=== PATIENT | male | born 1950 | race Caucasian/White ===

== ENCOUNTER 2017-01-04 10:47 | Emergency (ER) | payer MEDICARE ==
--- NOTE | 2017-01-04 11:54 | ER Document Report ---
ED Medical Screen (RME) - General Chief Complaint: Shortness Of Breath Stated Complaint: MEDICATION REFILL Time Seen by Provider: 01/04/17 11:46 Notes: Patient is a 66 year old male presenting to the emergency department for green phylem, cough and difficulty breathing. Patient has had recurrent lung infections including pneumonia and sepsis. Patient had a sputum culture which then cased him to be prescribed Tobramycin. Patient has been off antibiotics for 20 days and has persistent a cough. Patient had just gotten off antibiotics 20 days ago. Patient continued to have coughing and persistent Patient has had repeatitive lung infections. Patient was prescribed topramycin by Dr. Henriquez. Patient was told to go into the ED to get the topramycin. home o2 0x4; Habilitation Specialist Dr. Henriquez EXAM: on o2 patients spouse states patient was prescribed tobramycin and was unable to have filled until saturday. states was told to ocme to the ER for IV antibiotics r/t "infection in lungs". even rise and fall of chest. patient noted to have been assisted to bathroom prior to assessment and noted to have had an assisted fall. states he falls often and "the walk was to long". denies injury. [ End ] change to levaquin 750 mg x10 days TRAVEL OUTSIDE OF THE [place] IN LAST 30 DAYS: No - Related Data Allergies/Adverse Reactions: tape Allergy (Uncoded 01/04/17 11:02) Past Medical History - Social History Chew tobacco use (# tins/day): No Frequency of alcohol use: None Drug Abuse: None - Past Medical History Cardiac Medical History: Reports: Hx Hypercholesterolemia Pulmonary Medical History: Reports: Hx COPD Endocrine Medical History: Reports: Hx Diabetes Mellitus Type 2 Renal/ Medical History: Denies: Hx Peritoneal Dialysis Physical Exam - Vital signs Vitals: Temp Pulse Resp BP Pulse Ox 98.0 F 110 H 22 H 114/75 97 01/04/17 11:01 01/04/17 11:01 01/04/17 11:01 01/04/17 11:01 01/04/17 11:01 Course - Vital Signs Vital signs: Temp Pulse Resp BP Pulse Ox 98.0 F 110 H 22 H 114/75 97 01/04/17 11:01 01/04/17 11:01 01/04/17 11:01 01/04/17 11:01 01/04/17 11:01
[2017-01-04] MEDS ORDERED: LEVOFLOXACIN 750 MG TABLET PO ONE (11:57)
--- NOTE | 2017-01-04 11:57 | ER Document Report ---
ED Respiratory Problem - General Mode of Arrival: Wheelchair Information source: Patient, Relative - spouse TRAVEL OUTSIDE OF THE [place] IN LAST 30 DAYS: No - HPI Patient complains to provider of: Cough Onset: Other - Refer to HPI Notes - General Chief Complaint: Shortness Of Breath Stated Complaint: MEDICATION REFILL Time Seen by Provider: 01/04/17 11:46 Notes: Patient is a 66 year old male presenting to the emergency department for persistent green phlegm and cough. Patient has had recurrent lung infections including pneumonia and sepsis. Patient has been admitted and seen several times at [facility]. Patient is being followed by Dr. Henriquez, pulmonology. Patient had a sputum culture and was prescribed Tobramycin; patient is having difficulty getting this medication due to insurance purposes. Patient has been off antibiotics for about 20 days. Patient was assisted to the bathroom out front and was noted to have an assisted fall in the bathroom. Patient denies any injuries relating to this. Patient states he falls often and the walk to the bathroom was too long. Patient is on 4 liters of home oxygen. Patient called Dr. Henriquez and was told to come to the emergency department to get the right medication or treatment. (NETTE CONDE) - Related Data Allergies/Adverse Reactions: tape Allergy (Uncoded 01/04/17 11:02) Past Medical History - General Information source: Patient - Social History Smoking Status: Former Smoker Cigarette use (# per day): No Chew tobacco use (# tins/day): No Frequency of alcohol use: None Drug Abuse: None Family History: None Patient has suicidal ideation: No Patient has homicidal ideation: No - Past Medical History Cardiac Medical History: Reports: Hx Hypercholesterolemia Pulmonary Medical History: Reports: Hx COPD Endocrine Medical History: Reports: Hx Diabetes Mellitus Type 2 Surgical Hx: Negative Review of Systems - Review of Systems Constitutional: No symptoms reported EENT: No symptoms reported Cardiovascular: No symptoms reported Respiratory: See HPI, Cough Gastrointestinal: No symptoms reported Genitourinary: No symptoms reported Male Genitourinary: No symptoms reported Musculoskeletal: No symptoms reported Skin: No symptoms reported Hematologic/Lymphatic: No symptoms reported Neurological/Psychological: No symptoms reported -: Yes All other systems reviewed and negative Physical Exam - Vital signs Interpretation: Normal - Vital signs Vitals: Temp Pulse Resp BP Pulse Ox 98.0 F 110 H 22 H 114/75 97 01/04/17 11:01 07/21/17 11:01 01/04/17 11:01 01/04/17 11:01 01/04/17 11:01 - Notes Notes: GENERAL: Alert, interacts well, on 4L oxygen nasal cannula. No acute distress. HEAD: Normocephalic, atraumatic. EYES: Pupils equal, round, and reactive to light. Extraocular movements intact. ENT: Oral mucosa moist, tongue midline. Nasal cannula in place. NECK: Full range of motion. Supple. Trachea midline. LUNGS: Clear to auscultation bilaterally, no wheezes, rales, or rhonchi. No respiratory distress. HEART: Regular rate and rhythm. No murmurs, gallops, or rubs. ABDOMEN: Soft, non-tender. Non-distended. Bowel sounds present in all 4 quadrants. EXTREMITIES: Moves all 4 extremities spontaneously. No edema. No cyanosis. NEUROLOGICAL: Alert and oriented x3. Normal speech. PSYCH: Normal affect, normal mood. SKIN: Warm, dry, normal turgor. No rashes or lesions noted. (NETTE CONDE) Course - Consults Dr. Henriquez Time consulted: 12:00 - Re-evaluation Re-evalutation: 01/04/17 11:[address] Henriquez who states that he is already handling this patient as an outpatient, as patient has had no new symptoms and no new complaints simply unable to access his medications he recommends no further workup at this time and I agree, he recommends changing to a therapeutic equivalent as Levaquin instead of tobramycin. Levaquin 750 mg p.o. daily 10 days. Patient and family members are agreeable to this plan (GIANCARLO BARFIELD) - Vital Signs Vital signs: Temp Pulse Resp BP Pulse Ox 98.1 F 115 H 20 118/78 96 01/04/17 12:10 01/04/17 12:10 01/04/17 12:10 01/04/17 12:10 01/04/17 12:10 - Consults Dr. Henriquez Reason for consultation: 01/04/17 12:[address] Henriquez who recommends the patient receive a prescription for 750 mg Levaquin per day x10 days and be discharged home. (NETTE CONDE) Discharge - Discharge Clinical Impression: Bronchitis, mucopurulent recurrent Condition: Stable Disposition: HOME, SELF-CARE Additional Instructions: Dr. Henriquez asked us to please change your medication to Levaquin. I have faxed your prescription to [facility] in [place]. We have given you your first dose here. Please return for any new or concerning symptoms Prescriptions: Levofloxacin [Levaquin 750 mg Tablet] 750 mg PO DAILY #10 tablet Scribe Attestation: 01/04/17 15:40 I personally performed the services described in the documentation, reviewed and edited the documentation which was dictated to the scribe in my presence, and it accurately records my words and actions. (GIANCARLO BARFIELD) Scribe Documentation - Scribe Written by Nat:: Nat Salmon, 01/04/17 12:45 acting as scribe for :: Adalberto
[2017-01-04 12:18] VITALS: BP 118/78
== END 2017-01-04 12:15 | disposition home or self-care (01) ==
LOC: ER 10:47
DX: J40 Bronchitis, not specified as acute or chronic (principal); W18.30XA Fall on same level, unspecified, initial encounter; Y92.9 Unspecified place or not applicable; E78.00 Pure hypercholesterolemia, unspecified; J44.9 Chronic obstructive pulmonary disease, unspecified; E11.9 Type 2 diabetes mellitus without complications; Z87.891 Personal history of nicotine dependence
CPT/HCPCS: 99281; A9270